=== PATIENT | female | born 1975 | race Caucasian/White ===

== ENCOUNTER 2022-04-30 18:18 | Emergency (ER) | payer BC, SELFPAY ==
--- NOTE | ~2022-04-30 | XR_ITS ---
XR ankle LT min 3V DATE: 04/30/2022 19:23 INDICATION: Fall. Left lateral ankle pain. TECHNIQUE: 4 views COMPARISON: None FINDINGS: There is prominent lateral soft tissue swelling. No fracture or dislocation of the ankle o r disruption of the ankle mortise. IMPRESSION: Prominent lateral soft tissue swelling Reviewed, dictated and finalized at location A. [facility]BLER
[2022-04-30 19:02] VITALS: BP 167/85; PULSE 88; RESP 12; TEMP 36.8; O2SAT 98
--- NOTE | 2022-04-30 20:24 | ED_ITS ---
HPI - Extremity Injury (Lower) General Chief Complaint: Extremity Injury, Lower Stated Complaint: left ankle injury Time Seen by Provider: 04/30/22 19:44 History of Present Illness HPI Narrative: Patient is a 46-year-old female who presents ER with left ankle pain. Was getting down out of the truck when she suffered inversion injury. [place] a pop. She has swelling over the lateral malleolus with tenderness and decreased range of motion. No numbness or tingling. She did not strike her head or lose consciousness. She has difficulty with ambulation due to pain. Related Data Allergies Allergy/AdvReac Type Severity Reaction Status Date / Time No Known Allergies Allergy Mild Unverified 01/16/13 18:13 Review of Systems Musculoskeletal: Musculoskeletal: Reports arthralgias, Reports joint swelling and Denies muscle cramps Neurologic: Denies syncope, Denies focal weakness and Denies numbness Exam Narrative: GENERAL: Well-appearing, well-nourished, and in no acute distress. HEAD: Normocephalic, atraumatic. HEART: Regular rate and rhythm. Normal peripheral pulses. EXTREMITIES: Left lower extremity with lateral malleolar swelling/tenderness. No base of fifth metatarsal tenderness to responding to the midfoot. No medial malleoli or tenderness or swelling. With range motion due to pain. No proximal leg discomfort. SKIN: Warm, dry, no rash. NEURO: Alert and oriented x3. PSYCH: Normal mood and affect. Course Course Emergency Course: Patient informed of results. Declines pain medication here. Will be given Gustavo wrap and crutches. Recommend ankle stirrup splint that can be purchased at a local pharmacy or big box store. Vital Signs Vital signs: Vital Signs Temperature 98.2 F 04/30/22 19:02 Pulse Rate 88 04/30/22 19:02 Respiratory Rate 12 04/30/22 19:02 Blood Pressure 167/85 H 04/30/22 19:02 Pulse Oximetry 98 04/30/22 19:02 Oxygen Delivery Room Air 04/30/22 19:02 Temperature 98.2 F 04/30/22 19:02 Pulse Rate 88 04/30/22 19:02 Respiratory Rate 12 04/30/22 19:02 Blood Pressure 167/85 H 04/30/22 19:02 Pulse Oximetry 98 04/30/22 19:02 Oxygen Delivery Room Air 04/30/22 19:02 MDM - Extremity Injury (Lower) Imaging Data Radiologist's impression: ITS Impressions Ankle X-Ray 04/30/22 19:29 IMPRESSION: Prominent lateral soft tissue swelling Discharge Plan Discharge Clinical Impression: Ankle sprain and strain Patient Disposition: Home, Self-Care Condition: Stable Instructions: Ankle Sprain (ED), Ankle Stirrup Splint (ED), P.R.I.C.E. Treatment (ED) Additional Instructions: Return the ER if you have chest pain with shortness of breath, you have new injury, you have additional concerns. Follow-up with your primary care doctor for further treatment evaluation. Purchase a stirrup splint for your ankle at a local pharmacy or big box store. You may also check [employer]. Take Tylenol and/or ibuprofen as needed for pain. Follow-up/Referrals: PHYSICIAN NOT ON STAFF,NONSTAFF [Primary Care Provider] - 1 Week
== END 2022-04-30 20:33 | disposition home or self-care (01) ==
PROVIDERS: Emergency Provider Emergency Medicine
DX: S93.402A Sprain of unspecified ligament of left ankle, initial encounter (principal); S96.912A Strain of unspecified muscle and tendon at ankle and foot level, left foot, initial encounter; X50.9XXA Other and unspecified overexertion or strenuous movements or postures, initial encounter
CPT/HCPCS: 73610; 99283

== ENCOUNTER 2023-11-12 00:54 | Day surgery (SDC) | payer BC, SELFPAY ==
[2023-11-06 13:00] VITALS: BMI 33.7
[2023-11-12 08:45] VITALS: BP 160/91; PULSE 78; RESP 16; TEMP 36.1; O2SAT 99
[2023-11-12] MEDS: LACTATED RINGERS 1,000 ML 150 ML IV CONT (08:54)
--- NOTE | 2023-11-12 09:38 | WPDANESEPPF ---
Anes - Initial Pre Proc Eval Procedure: Operation Date: 11/12/23 10:00 Proposed Procedures p Screening Colonoscopy - Donald Maldonado MD Date/Time: 11/12/23 09:38 Surgeon: Donald Maldonado MD Pre Op Diagnosis: neoplasm screening Patient Data Age: 47 Gender: F Height: 1.63 m Weight: 87.9 kg Last Vital Signs Temp 96.9 F L 11/12/23 08:45 Pulse 78 11/12/23 08:45 Resp 16 11/12/23 08:45 BP 160/91 H 11/12/23 08:45 Pulse Ox 99 11/12/23 08:45 O2 Del Method Room Air 11/12/23 08:45 Allergies Allergy/AdvReac Type Severity Reaction Status Date / Time banana Allergy Intermediate Rash Verified 11/12/23 08:41 Penicillins Allergy Intermediate Rash Verified 11/12/23 08:41 Home Medications Medication Instructions Recorded Confirmed Type valacyclovir 1 gram tablet 1 mg PO BID 11/06/23 11/12/23 History Patient hx anesthesia problems: none Family hx anesthesia problems: none Results Review: All pre-operative results and documents have been reviewed as part of the pre-operative evaluation. [facility] Social History Social History Smoking status: Never smoker Alcohol intake: current Substance use: never Substance use type: does not use Living arrangements: with family Spiritual care concerns: No Anes - Eval Final PreProcedure Day of Procedure 11/12/23 09:38 Patient weight: obese Heart: regular rate and rhythm Lungs: clear to auscultation Airway: Mallampati scale class II Neurological: alert and oriented Last oral intake: >/= 8 hours ASA classification: II Emergent: no Anesthetic plan: proceed Anesthesia type and monitoring: general GIVS and standard monitoring Results Review: All pre-operative results and documents have been reviewed as part of the pre-operative evaluation. Informed Consent: The patient's anesthetic plan and its attendant risks and benefits were discussed with the patient/family/POA. Questions were solicited and answers provided to the satisfaction of the patient/family/POA.
--- NOTE | 2023-11-12 09:49 | PM.HPGS ---
History of Present Illness History of Present Illness Consent: Risks, benefits, and alternatives have been discussed and questions answered. Patient agrees to proceed with procedure. Chief complaint: neoplasm screening Narrative: Malena Guan is a 47 year old female here for first screening colonoscopy Review of Systems Review of Systems: All systems reviewed & are unremarkable except as noted in HPI and below PMFSH Past Medical History Medical History (Updated 11/12/23 @ 09:50 by Donald Maldonado MD) Colon cancer screening Social History Social History Smoking status: Never smoker Alcohol intake: current Substance use: never Substance use type: does not use Living arrangements: with family Spiritual care concerns: No Meds Home Medications and Allergies Home Medications Medication Instructions Recorded Confirmed Type valacyclovir 1 gram tablet 1 mg PO BID 11/06/23 11/12/23 History Allergies Allergy/AdvReac Type Severity Reaction Status Date / Time banana Allergy Intermediate Rash Verified 11/12/23 08:41 Penicillins Allergy Intermediate Rash Verified 11/12/23 08:41 Vital Signs Vital Signs - 24 hr 11/12/23 08:45 Temperature 96.9 F L Pulse Rate 78 Respiratory Rate 16 Blood Pressure 160/91 H Pulse Oximetry 99 Oxygen Delivery Room Air Exam Const: General: comfortable and no acute distress HENMT: Face/Nose/Sinus: Normal nares present Eyes: General: appearance normal, both eyes and all related structures Neck: Neck: no JVD Resp: Auscultation: clear to auscultation bilaterally Cardio: Rate: regular rate Rhythm: regular rhythm GI: Inspection: non-distended GI Palp: Yes Soft to palpation Skin: General skin exam: normal color Neuro: General: gait normal Speech: normal speech Extrem: General: normal to inspection Psych: Mental Status: mental status grossly normal Assessment and Plan Assessment and plan (1) Colon cancer screening: Code(s): Z12.11 - Encounter for screening for malignant neoplasm of colon Status: Acute Assessment and Plan: colonoscopy
[2023-11-12 10:17] VITALS: BP 119/76; PULSE 77; RESP 16; O2SAT 96
[2023-11-12 10:27] VITALS: BP 115/81; PULSE 63; RESP 16; O2SAT 96
[2023-11-12 10:37] VITALS: BP 119/76; PULSE 63; RESP 16; O2SAT 97
== END 2023-11-12 10:47 | disposition home or self-care (01) ==
PROVIDERS: Referring Provider Obstetrics & Gynecology Gynecology; Visit Provider Internal Medicine Gastroenterology
PROC: 0DJD8ZZ Inspection of Lower Intestinal Tract, Via Natural or Artificial Opening Endoscopic (ICD-10-PCS; CPT 45378; principal; 2023-11-12 10:00)
DX: Z12.11 Encounter for screening for malignant neoplasm of colon (principal); D12.4 Benign neoplasm of descending colon; K64.8 Other hemorrhoids
CPT/HCPCS: 45385; 88305; J2704; J7120

== ENCOUNTER 2023-12-24 14:56 | Outpatient (CLI) | payer BC, SELFPAY ==
--- NOTE | ~2023-12-24 | MM_ITS ---
EXAMINATION: MM screening jeremy [facility] w [facility] HISTORY: Screening TECHNIQUE: Craniocaudal and mediolateral oblique 3-D tomosynthesis images were obtained and synthetic 2-D images were generated. CAD analysis was submitted and interpreted. COMPARISON: No prior mammogram is available for comparison at this institution. BREAST PARENCHYMAL COMPOSITION: There are scattered areas of fibroglandular density. FINDINGS: There is no evidence of suspicious mass, calcification, or architectural distortion to sugg est malignancy in either breast. There has been no suspicious interval change. IMPRESSION: 1. No mammographic evidence of malignancy. 2. Recommend routine screening mammography in one year. BI-RADS Category 1: Negative Reviewed, dictated and finalized at location B.
== END 2023-12-24 14:57 ==
LOC: MICIMG 14:57
PROVIDERS: PCP Nurse Practitioner Women's Health; Visit Provider Nurse Practitioner Women's Health
DX: Z12.31 Encounter for screening mammogram for malignant neoplasm of breast (principal)
CPT/HCPCS: 77063; 77067

== ENCOUNTER 2025-01-22 12:20 | Outpatient (CLI) | payer BC, SELFPAY ==
--- NOTE | ~2025-01-22 | MM_ITS ---
EXAMINATION: MM screening je[facility] w [facility] HISTORY: Screening TECHNIQUE: Craniocaudal and mediolateral oblique 3-D tomosynthesis images were obtained and synthetic 2-D images were generated. CAD analysis was submitted and interpreted. COMPARISON: Mammogram 12/23/2013 BREAST PARENCHYMAL COMPOSITION: Not Dense: The breasts are almost entirely fatty. FINDINGS: There is no evidence of suspicious mass, calcification, or architectural distortion to suggest malignancy. There has been no suspicious interval change. IMPRESSION: 1. No mammographic evidence of malignancy. Recommend routine screening mammography in one year. BI-RADS Category 2: Benign finding(s) Reviewed, dictated and finalized at location Q. IMPRESSION: 1. No mammographic evidence of malignancy. Recommend routine screening mammogra phy in one year. BI-RADS Category 2: Benign finding(s)
== END 2025-01-22 12:21 | disposition home or self-care (01) ==
LOC: MICIMG 12:21
PROVIDERS: PCP Obstetrics & Gynecology Gynecology; Visit Provider Obstetrics & Gynecology Gynecology
DX: Z12.31 Encounter for screening mammogram for malignant neoplasm of breast (principal)
CPT/HCPCS: 77063; 77067